=== PATIENT | female | born 1955 | race Caucasian/White ===

== ENCOUNTER 2018-10-03 02:07 | Outpatient (CLI) | payer BC | END 2018-10-03 23:59 | disposition home or self-care (01) | LOC: DIABETIC 02:07 | PROVIDERS: ATTEND Specialist | DX: E11.9 Type 2 diabetes mellitus without complications (principal); Z71.3 Dietary counseling and surveillance | CPT/HCPCS: G0108 ==

== ENCOUNTER 2021-06-23 20:28 | Emergency (ER) | payer MEDICARE, BC ==
[~2021-06-23] VITALS: Ht 149.9 cm; Wt 162.0 kg
[2021-06-23 21:16] LABS: BASOPHILS % (AUTO) 0.3 % (0-1); EOSINOPHILS # (AUTO) 0.1 X10'3 (0-0.9); EOSINOPHILS % (AUTO) 1.5 % (0-6); HEMATOCRIT 41.1 % (35.0-45.0); HEMOGLOBIN 13.5 g/dl (12.0-16.0); LYMPHOCYTES # (AUTO) 1.7 X10'3 (1.1-4.8); LYMPHOCYTES % (AUTO) 27.5 % (21-51); MEAN CORPUSCULAR HEMOGLOBIN 26.7 PG (27.0-31.0); MEAN CORPUSCULAR HGB CONC 32.9 g/dL (33.0-36.5); MEAN CORPUSCULAR VOLUME 81.2 FL (78-98); MEAN PLATELET VOLUME 7.8 FL (7.4-10.4); MONOCYTES # (AUTO) 0.6 X10'3 (0-0.9); MONOCYTES % (AUTO) 10.4 % (2-12); NEUTROPHILS # (AUTO) 3.6 X10'3 (1.8-7.7); NEUTROPHILS % (AUTO) 60.3 % (42-75); PLATELET COUNT 274 X10'3 (140-440); RED BLOOD COUNT 5.06 X10'6 (4.20-5.60); RED CELL DISTRIBUTION WIDTH 14.2 % (11.5-14.5)
[2021-06-23 21:36] LABS: ALANINE AMINOTRANSFERASE 34 U/L (12-78); ALBUMIN 3.8 G/DL (3.4-5.0); ALBUMIN/GLOBULIN RATIO 1.3 (1.1-1.5); ALKALINE PHOSPHATASE 95 IU/L (46-116); ANION GAP 11 (8-16); ASPARTATE AMINO TRANSFERASE 17 U/L (10-37); BILIRUBIN,TOTAL 0.2 MG/DL (0.1-1.0); BLOOD UREA NITROGEN 18 MG/DL (7-18); BUN/CREATININE RATIO 16.4 (6.6-38.0); CHLORIDE 108 MMOL/L (99-107); GLUCOSE 127 MG/DL (70-104); POTASSIUM 4.4 MMOL/L (3.5-5.1); SODIUM 143 MMOL/L (135-145); TOTAL CARBON DIOXIDE 24.5 MMOL/L (24-32); TOTAL PROTEIN 6.8 G/DL (6.4-8.2); eGFR 50 ML/MIN
[2021-06-24 00:41] LABS: D-DIMER 0.27 MG/L FEU (0-0.50)
[2021-06-24 01:43] VITALS: BP 149/98
== END 2021-06-24 01:30 | disposition home or self-care (01) ==
LOC: ER 20:29
DX: R07.89 Other chest pain (principal); E11.9 Type 2 diabetes mellitus without complications; Z88.8 Allergy status to other drugs, medicaments and biological substances
CPT/HCPCS: 36415; 71045; 80053; 83880; 84484; 85025; 85379; 93005; 99285

== ENCOUNTER 2021-08-18 08:34 | Outpatient (CLI) | payer MEDICARE, BC | END 2021-08-18 23:59 | disposition home or self-care (01) | LOC: CARD DIAG 08:34 | PROVIDERS: ATTEND Internal Medicine Cardiovascular Disease | DX: I08.8 Other rheumatic multiple valve diseases (principal); R94.31 Abnormal electrocardiogram [ECG] [EKG] | CPT/HCPCS: 93306 ==

== ENCOUNTER 2023-09-26 13:09 | Emergency (ER) | payer BC, MEDICARE ==
[~2023-09-26] VITALS: Ht 162.6 cm; Wt 72.0 kg
[2023-09-26 15:09] VITALS: BP 123/68; PULSE 76; RESP 16; TEMP 98; O2SAT 99
[2023-09-26] MEDS ORDERED: cyclobenzaprine 10mg tablet PO PRN (16:00)
[2023-09-26] MEDS ORDERED: PRED10TA23 PO (16:13)
[2023-09-26] MEDS ORDERED: CYCL-394 PO (16:13)
[2023-09-27] MEDS ORDERED: prednisone 10mg tablet PO SCH (08:00)
== END 2023-09-26 15:11 | disposition home or self-care (01) ==
LOC: ER 13:10
DX: M25.511 Pain in right shoulder (principal); E11.9 Type 2 diabetes mellitus without complications; Z88.0 Allergy status to penicillin; Z88.8 Allergy status to other drugs, medicaments and biological substances
CPT/HCPCS: 73030; 99283

== ENCOUNTER 2024-11-07 14:51 | Emergency (ER) | payer MEDICARE, OTHER ==
[~2024-11-07] VITALS: Ht 154.9 cm; Wt 75.0 kg
--- NOTE | 2024-11-07 15:53 | RADIOLOGY REPORT ---
CLINICAL INDICATION: mechanical fall TECHNIQUE: Right DI KNEE, COMP 4 VW MIN Comparison: None FINDINGS/IMPRESSION: : There is no evidence of acute fracture or dislocation. Mild lateral subluxation of the patella. Moderate patellofemoral degenerative joint space narrowing. Osteopenia.
--- NOTE | 2024-11-07 15:58 | Physician Documentation ---
History of Present Illness ~ Chief Complaint: Knee Pain Stated Complaint: R KNEE INJURY Time Seen by MD: 15:16 Primary Medical Doctor: ELSI TELLEZ [facility] This is a 69-year-old female who presents to the emergency department reporting that she had a recent fall with a twisting injury of the right knee. Ever since that time, she has had significant pain to the knee, primarily to the inner aspect of the knee. She is using a walker to ambulate due to the pain. Otherwise reports that she feels at baseline and denies any other symptoms of illness or concern. Tetanus witin 5 years: No (unk) Medication Reconciliation Allergies: Coded Allergies: Penicillins (Verified Allergy, Unknown, 11/07/24) lamotrigine (Verified Allergy, Unknown, 11/07/24) lurasidone (Verified Allergy, Unknown, 11/07/24) Past Medical History Past Medical History: Renal Disease, Diabetes Past Surgical History: no surgical history Alcohol Use: None Drug Use: none Lives with: Other Lives In: Home Occupation: retired Review of Systems ROS As stated above in the HPI, otherwise all systems are reviewed and negative. Physical Exam Vital Signs: Temperature: 97.3, Source: Temporal, Heart Rate: 72, Respiratory Rate: 16, BP: 132/93, Pulse Oximetry: 98, Weight: 75.000 Physical Exam General: Alert, no apparent distress. Neck: Full range of motion. Respiratory: Lungs clear, no respiratory distress. Chest: No accessory muscle use. Cardiovascular: Regular rate and rhythm, no murmurs. Gastrointestinal: Soft, nontender, nondistended. Bowels sounds present. Extremities: Reduced/painful ROM to knee with pain to medial palpation. Neurologic: Oriented x4. Psychiatric: Normal mood and affect. Skin: Normal color, warm and dry. No edema, no ecchymosis. Progress Results/Orders Results/Orders Orders - MELINDA JOHNSON NP Knee, Complete (11/07/24 15:17) Ortho Orders (11/07/24 ) Completed Orders - MELINDA JOHNSON [employer] Knee, Complete (11/07/24 15:17) Vital Signs 11/07/24 14:58 Temp 97.3 Pulse 72 Resp 16 B/P (MAP) 132/93 Pulse Ox 98 EKG/XRAY/CT/US/VASC/MRI Bone/Soft Tissue X-Ray (Spine) : Additional Comment [facility] [address] , [place], [place] - [address] DIAGNOSTIC RADIOLOGY Patient: LAMAR COLE Medical Record: [id number] [facility] : 1955, Age: 69 Sex: Female Location: ER Patient Status: [facility] ER Service Date/Time: 11/07/241516 Ordering Physician: MELINDA JOHNSON NP Exam: KNEE, COMP 4 VW MIN CLINICAL INDICATION: mechanical fall TECHNIQUE: Right DI KNEE, COMP 4 VW MIN Comparison: None FINDINGS/IMPRESSION: : There is no evidence of acute fracture or dislocation. Mild lateral subluxation of the patella. Moderate patellofemoral degenerative joint space narrowing. Osteopenia. Electronically Signed by:LUIS ARMANDO LÓPEZ MD Date & Time: 11/07/241550 Dictated by: LUIS ARMANDO LÓPEZ MD Dictation date and time: 11/07/241550 Primary Care Provider: NO PRIMARY CARE PROVIDER cc: MELINDA JOHNSON NP ~ Medical Decision Making Additional Comment No fracture on x-ray. The x-ray did make mention of mild lateral subluxation, but the patient has no point tenderness to this spot. She has an established relationship with [facility], and plans to make an appointment soon. She will be sent home in a knee brace, and is instructed to continue to use her walker, ice the sore area, and use Voltaren gel and acetaminophen as she has a history of chronic kidney disease. She should return if worse at any time. Departure Time of Disposition: 16:08 Disposition: 01 HOME / SELF CARE / HOMELESS Impression: Primary Impression: Knee pain Qualified Codes: M25.561 - Pain in right knee Condition: Stable Discharge Instructions: Acute Knee Pain, Adult Additional Instructions: See your orthopedist soon. Use the knee brace when you are up walking, and use the walker. Minimal weight on the right knee. Buy [id number] Voltaren gel, and you may apply it in a thin layer 3 times a day to the site of soreness in the right knee. Otherwise, take [id number] acetaminophen as needed for pain. Return if worse. Referrals: NO PRIMARY CARE PROVIDER (PCP) Education Educated: Patient Educated regarding: diagnosis, treatment, prognosis, need for follow up Signature Scribe Signature: x Attestation: The note accurately reflects work and decisions made by me.Melinda Lopez NP 11/07/24 15:59 MELINDA JOHNSON NP Nov 07, 2024 15:58
[2024-11-07 16:27] VITALS: BP 130/82; PULSE 73; RESP 16; TEMP 97.3; O2SAT 99
== END 2024-11-07 16:15 | disposition home or self-care (01) ==
LOC: ER 14:51
DX: M25.561 Pain in right knee (principal); E11.9 Type 2 diabetes mellitus without complications; Z88.0 Allergy status to penicillin
CPT/HCPCS: 29505; 73564; 99284